=== PATIENT | male | born 1995 | race Two or more races ===

== ENCOUNTER 2019-01-03 18:13 | Emergency (ER) | payer SELFPAY ==
[~2019-01-03] VITALS: Ht 167.6 cm; Wt 81.0 kg
[2019-01-03 18:21] VITALS: BP 116/73
--- NOTE | 2019-01-03 19:21 | NUR ---
pt given dc instructions and script. pt educated regarding dc medication. pt amb to dc with steady gait. no acute distress at dc.
== END 2019-01-03 19:22 | disposition home or self-care (01) ==
LOC: ED 19:16
DX: B34.9 Viral infection, unspecified (principal)
CPT/HCPCS: 71046; 99283